=== PATIENT | male | born 1955 | race Caucasian/White ===

== ENCOUNTER 2022-11-15 11:15 | Inpatient (IN) | payer MEDICARE, OTHER ==
[~2022-11-15] VITALS: Ht 172.7 cm; Wt 93.4 kg
[2022-11-15 11:36] LABS: *BILIRUBIN,URIN NEGATIVE (NEGATIVE); *BLOOD, URINE NEGATIVE (NEGATIVE); *CLARITY,URINE CLEAR (CLEAR); *COLOR,URINE YELLOW (YELLOW); *KETONES,URINE NEGATIVE (NEGATIVE); *UROBILINOGEN,URINE 0.2 E.U./dl (NORMAL); LEUKOCYTE ESTERASE ,URINE NEGATIVE (NEGATIVE); NITRITE, URINE NEGATIVE (NEGATIVE); UGLUCOSE NEGATIVE (NEGATIVE)
[2022-11-15] MEDS ORDERED: ACET-73 PO ×2 (11:54)
[2022-11-15] MEDS ORDERED: ACET-2154 PO (11:54)
[2022-11-15] MEDS ORDERED: AMLO10TA59 PO (11:54)
[2022-11-15 11:59] LABS: HEMATOCRIT 45.3 % (36.7-47.1); MEAN CORPUSCULAR HEMOGLOBIN 29.4 uug (23.8-33.4); MEAN CORPUSCULAR VOLUME 86.2 fL (73.0-96.2); PLATELET COUNT (AUTO) 203 K/uL (152-348)
[2022-11-15 12:09] LABS: CREATININE 0.9 mg/dL (0.6-1.3); POTASSIUM 3.6 mmol/L (3.5-5.1)
[2022-11-15] MEDS ORDERED: SENN-148 PO (12:10)
[2022-11-15] MEDS ORDERED: DOCU100C36 PO (12:10)
[2022-11-15] MEDS ORDERED: B1/B1TAB5 PO (12:10)
[2022-11-15] MEDS ORDERED: IBUP-1953 PO (12:10)
[2022-11-15] MEDS ORDERED: HYDR-3980 PO (12:10)
[2022-11-15] MEDS ORDERED: MULT-213 PO (12:10)
[2022-11-15] MEDS ORDERED: MELA3TAB41 PO (12:10)
[2022-11-15] MEDS ORDERED: CLOZ100T32 PO (12:10)
[2022-11-15] MEDS ORDERED: ROSU20TA2 PO (12:10)
[2022-11-15] MEDS ORDERED: FAMO40TA7 PO (12:10)
[2022-11-15] MEDS ORDERED: LOSA25TA27 PO (12:10)
[2022-11-15] MEDS ORDERED: PANT40TA49 PO (12:10)
[2022-11-15 12:15] LABS: BILIRUBIN,DIRECT 0.1 mg/dL (0.0-0.2); BILIRUBIN,TOTAL 0.7 mg/dL (0.2-1.0)
[2022-11-15] MEDS ORDERED: CHOL10005 PO (12:23)
[2022-11-15] MEDS ORDERED: TAMS-3 PO (12:23)
[2022-11-15] MEDS ORDERED: ASCO500C18 PO (12:23)
[2022-11-15] MEDS ORDERED: SIME125C81 PO (12:23)
--- NOTE | 2022-11-15 12:30 | NUR ---
Pt resting with NAD noted.
[2022-11-15] MEDS ORDERED: IV NORMAL SALINE 1000 ML BAG IV ONE (12:45)
--- NOTE | 2022-11-15 12:45 | NUR ---
Pt to be admitted to med/surg floor, room 303 assigned. Accepting MD: Sherlyn Elam Dx: Abd pain SBAR report given to VICTORIA Schaefer via telephone. Plan of care discussed with patient by nursing staff and ER physician, patient verbalized understanding.
[2022-11-15 14:05] VITALS: BP 120/86
[2022-11-15] MEDS ORDERED: Medication Not On Formulary EA (Simethicone 125 MG) PO PRN (15:30)
[2022-11-15] MEDS ORDERED: HYDROCODONE/APAP 10-325 MG TABLET PO PRN (15:30)
[2022-11-15] MEDS ORDERED: ACETAMINOPHEN 325 MG TABLET-SA PATIENTS-PAIN ONLY PO PRN (15:30)
[2022-11-15] MEDS ORDERED: ONDANSETRON 4 MG/2 ML VIAL IV PRN (15:45)
[2022-11-15] MEDS ORDERED: SIMETHICONE 80 MG TAB.CHEW PO PRN (16:00)
[2022-11-15] MEDS: PANTOPRAZOLE SODIUM 40 MG TABLET.DR PO SCH (16:32)
[2022-11-15] MEDS: ACETAMINOPHEN 325 MG TABLET PO PRN (16:33)
[2022-11-15] MEDS ORDERED: CLOZAPINE 100 MG TABLET PO SCH (18:00)
[2022-11-15 20:00] VITALS: BP 104/63
--- NOTE | 2022-11-15 20:09 | NUR ---
RECEIVED REPORT FROM VICTORIA MOREIRA, THE EMERGENCY DEPARTMENT. PATIENT IS ALERT & ORIENTED X4, AND SPEAKS TONGAN. VITAL SIGNS STABLE. PATIENT TOLERATES MEDICATIONS AND DIET WELL. PATIENT HAD COMPLAINT OF ABDOMINAL PAIN. PER PATIENT, HE REQUEST THE TYLENOL. 22G IV GAVE PATIENT PAIN. RN REMOVED IV. IV CATHETER INTACT. RN ATTEMPTED X1 FOR IV INSERTION. VICTORIA GTZ, ABLE TO INSERT 20G CATHETER ON THE LEFT HAND. HOSPITALIST MD VISITED PATIENT. CALL LIGHT WITHIN REACH. FALL PRECAUTIONS OBSERVED. ALL NEEDS MET AT THIS TIME. RN ENDORSED CARE TO LUIS DANIEL VELA, FOR CONTINUATION OF CARE.
[2022-11-15] MEDS: CLOZAPINE 100 MG TABLET PO SCH (20:31)
[2022-11-15] MEDS: TAMSULOSIN HCL 0.4 MG CAP.SR.24H PO SCH (20:31)
[2022-11-15] MEDS: MELATONIN 3 MG TABLET PO SCH (20:32)
[2022-11-16 04:02] VITALS: BP 110/68
[2022-11-16 05:03] VITALS: BP 129/76
[2022-11-16] MEDS: PANTOPRAZOLE SODIUM 40 MG TABLET.DR PO SCH ×2 (06:04→17:00)
[2022-11-16 07:18] LABS: IRON, SERUM 73 ug/dL (50-175)
[2022-11-16 07:21] LABS: THYROID STIMULATING HORMONE 0.854 mIU/mL (0.358-3.740)
[2022-11-16 07:51] LABS: HEMATOCRIT 45.4 % (36.7-47.1); MEAN CORPUSCULAR HEMOGLOBIN 29.4 uug (23.8-33.4); MEAN CORPUSCULAR VOLUME 86.9 fL (73.0-96.2); PLATELET COUNT (AUTO) 205 K/uL (152-348)
[2022-11-16 07:52] LABS: ALANINE AMINOTRANSFERASE 49 U/L (16-63); ALKALINE PHOSPHATASE 92 U/L (50-136); ASPARTATE AMINOTRANSFERASE 26 U/L (15-37); BILIRUBIN,TOTAL 0.6 mg/dL (0.2-1.0); CARBON DIOXIDE 26 mmol/L (21-32); CHLORIDE 106 mmol/L (98-107); CHOLESTEROL 145 mg/dL (<200); CREATININE 0.8 mg/dL (0.6-1.3); GLUCOSE 101 mg/dL (74-106); HDL CHOLESTEROL 44 mg/dL (40-60); MAGNESIUM 1.8 mg/dL (1.8-2.4); PHOSPHOROUS 3.9 mg/dL (2.5-4.9); POTASSIUM 3.6 mmol/L (3.5-5.1); TOTAL PROTEIN, SERUM 6.9 g/dL (6.4-8.2); TRIGLYCERIDES 171 MG/DL (30-150); UREA NITROGEN, BLOOD 15 mg/dL (7-18)
[2022-11-16] MEDS: LOSARTAN POTASSIUM 25 MG TABLET PO SCH (09:55)
[2022-11-16] MEDS: AMLODIPINE 10 MG TABLET PO SCH (09:56)
[2022-11-16] MEDS: ACETAMINOPHEN 325 MG TABLET PO PRN ×2 (10:18→14:55)
[2022-11-16 11:30] VITALS: BP 133/80
[2022-11-16 15:43] VITALS: BP 112/73
--- NOTE | 2022-11-16 15:45 | NUR ---
Notified Dr. Reece that pt would like to see him if he is still here.
[2022-11-16 19:59] VITALS: BP 106/79
[2022-11-16] MEDS: CLOZAPINE 100 MG TABLET PO SCH (20:27)
[2022-11-16] MEDS: MELATONIN 3 MG TABLET PO SCH (20:27)
[2022-11-16] MEDS: TAMSULOSIN HCL 0.4 MG CAP.SR.24H PO SCH (20:27)
--- NOTE | 2022-11-16 20:30 | NUR ---
PATIENT AWAKE IN BED. VSS. NO C/O PAIN AT THIS TIME. CALL LIGHT IN REACH. ALL NEEDS ATTENDED. WILL CONTINUE TO MONITOR AND ASSESS.
[2022-11-16] MEDS ORDERED: GOLYTELY 4000 ML BOTTLE PO ONE (20:45)
--- NOTE | 2022-11-16 21:00 | NUR ---
RECEIVED ORDERS FROM DR. FLORES IN REGARDS TO PATIENT TAKING GOLYTELY TONIGHT FOR TOMORROW COLONOSCOPY AND EGD. INFORMED AND EDUCATED PATIENT ON PLAN AND PROCEDURE. PATIENT REFUSED TO TAKE GOLYTELY TONIGHT AND STATED, "I WILL DO IT TOMORROW NIGHT." SENIOR TECHNICAL SUPPORT ANALYST NOTIFIED AND CALLED OUT TO DR. FLORES TO INFORM HIM THAT PATIENT IS REFUSING. ALL NEEDS ATTENDED.
--- NOTE | 2022-11-16 21:58 | NUR ---
DR. FLORES RESPONDED BACK. RECEIVED ORDER VERBAL ORDER TO LET DR. UREÑA KNOW THAT PATIENT REFUSED. DR. UREÑA NOTIFIED.
--- NOTE | 2022-11-16 22:00 | NUR ---
DR. UREÑA NOTIFIED THAT PATIENT REFUSED GOLYTELY AND THAT DR. FLORES IS AWARE OF REFUSAL.
[2022-11-17 04:26] VITALS: BP 107/80
[2022-11-17] MEDS: PANTOPRAZOLE SODIUM 40 MG TABLET.DR PO SCH ×2 (06:07→16:34)
[2022-11-17] MEDS: LOSARTAN POTASSIUM 25 MG TABLET PO SCH (08:14)
[2022-11-17] MEDS: AMLODIPINE 10 MG TABLET PO SCH (08:14)
--- NOTE | 2022-11-17 10:50 | NUR ---
pt went to gi lab via bed for the procedure in stable condition
[2022-11-17] MEDS ORDERED: PROPOFOL 200 MG/20 ML BOTTLE ONE (11:00)
--- NOTE | 2022-11-17 12:03 | NUR ---
pt received back from recovery room via bed in stable condition.
[2022-11-17 12:46] VITALS: BP 118/85
[2022-11-17 16:02] VITALS: BP 124/89
[2022-11-17 20:08] VITALS: BP 117/73
[2022-11-17] MEDS: CLOZAPINE 100 MG TABLET PO SCH (20:33)
[2022-11-17] MEDS: TAMSULOSIN HCL 0.4 MG CAP.SR.24H PO SCH (20:36)
[2022-11-17] MEDS: MELATONIN 3 MG TABLET PO SCH (20:36)
--- NOTE | 2022-11-17 22:11 | NUR ---
PATIENT IV LINES PULLED OUT, TRIES TO PUT A NEW ONE BUT PATIENT REFUSED, GETS AGITATED.
[2022-11-18 04:14] VITALS: BP 101/72
[2022-11-18] MEDS: PANTOPRAZOLE SODIUM 40 MG TABLET.DR PO SCH (06:14)
--- NOTE | 2022-11-18 06:27 | NUR ---
Patient awake, cont to refused IV lines, slept most of the night. no complain of pain, cont to monitor.
[2022-11-18] MEDS: AMLODIPINE 10 MG TABLET PO SCH (08:02)
[2022-11-18] MEDS: LOSARTAN POTASSIUM 25 MG TABLET PO SCH (08:02)
[2022-11-18] MEDS ORDERED: PANT40TA2 PO (09:30)
[2022-11-18] MEDS ORDERED: TAMS-3 PO (09:30)
[2022-11-18] MEDS ORDERED: LOPERAMIDE HCL 2 MG CAPSULE PO ONE (10:00)
[2022-11-18 11:35] VITALS: BP 118/79
--- NOTE | 2022-11-18 12:38 | NUR ---
dc orders received noted and carried out,dc instruction and rn report given to the usp rn .pt left the facility via ambulances in stable condition
== END 2022-11-18 12:50 | DRG 392 ==
LOC: ER 11:15 → MEDSURG3 13:55
PROVIDERS: ADMIT Internal Medicine; ATTEND Internal Medicine
PROC: 0DJ08ZZ Inspection of Upper Intestinal Tract, Via Natural or Artificial Opening Endoscopic (ICD-10-PCS; principal; 2022-11-17)
DX: K21.9 Gastro-esophageal reflux disease without esophagitis (principal); F20.0 Paranoid schizophrenia; G21.19 Other drug induced secondary parkinsonism; G89.4 Chronic pain syndrome; E78.5 Hyperlipidemia, unspecified; E11.40 Type 2 diabetes mellitus with diabetic neuropathy, unspecified; Z90.49 Acquired absence of other specified parts of digestive tract; E66.9 Obesity, unspecified; Z68.31 Body mass index [BMI] 31.0-31.9, adult; Z86.16 Personal history of COVID-19; F31.9 Bipolar disorder, unspecified; N40.0 Benign prostatic hyperplasia without lower urinary tract symptoms; Z79.899 Other long term (current) drug therapy; G25.81 Restless legs syndrome; G24.9 Dystonia, unspecified; Z20.822 Contact with and (suspected) exposure to COVID-19; J44.9 Chronic obstructive pulmonary disease, unspecified; M51.36 Other intervertebral disc degeneration, lumbar region; R16.1 Splenomegaly, not elsewhere classified; I10 Essential (primary) hypertension; Z87.438 Personal history of other diseases of male genital organs
CPT/HCPCS: 36415; 71045; 83550; 83690; 83735; 84100; 84153; 84443; 84484; 85025; 93005; A4663; G0378; J3490